=== PATIENT | male | born 1955 | race Caucasian/White ===

== ENCOUNTER 2019-01-09 09:04 | Inpatient (IN) | payer BC, SELFPAY ==
[2019-01-09 09:36] LABS: #Basophils 0.1 thou/uL (0.0-0.2); #Eosinphils 0.1 thou/uL (0.0-0.7); #Monocytes 0.7 thou/uL (0.11-0.59); #Neutrophils 11.5 thou/uL (1.40-6.50); %Basophils 0.7 % (0.0-1.0); %Eosinophils 0.5 % (0.0-10.0); %Lymphocytes 13.6 % (21.0-51.0); %Monocytes 4.6 % (0.0-10.0); %Neutrophils 80.6 % (42.0-75.0); Hemoglobin 8.2 g/dL (14.0-18.0); Mean Corpuscular HGB CONC 31.7 g/dL (32.0-36.0); Mean Corpuscular Hemoglobin 26.4 pg (27.0-31.0); Mean Corpuscular Volume 83.1 fL (78.0-98.0); Mean Platelet Volume 5.7 fL (7.4-10.4); Platelet Count 852 thou/uL (130-400); RBC Distribution Width 13.8 % (11.5-14.5); Red Blood Cell (RBC) Count 3.12 mill/uL (4.70-6.10); White Blood Cell (WBC) Count 14.3 thou/uL (4.8-10.8)
[2019-01-09 09:51] LABS: ALT (SGPT) 25 U/L (8-55); AST (SGOT) 29 U/L (5-34); Albumin 3.5 g/dL (3.4-4.8); Alkaline Phosphatase 172 U/L (40-150); Anion Gap 17 mmol/L (10-20); BUN (Urea Nitrogen) 15 mg/dL (8.4-25.7); Bilirubin, Total 0.3 mg/dL (0.2-1.2); Calc. Creatinine Clearance 0 mL/min (70-130); Calcium 9.2 mg/dL (7.8-10.44); Carbon Dioxide 24 mmol/L (23-31); Chloride 95 mmol/L (98-107); Estimated GFR-MDRD Greater than 90; Globulin 4.2 g/dL (2.4-3.5); Glucose 105 mg/dL (80-115); Potassium 4.7 mmol/L (3.5-5.1); Protein, Total 7.7 g/dL (5.8-8.1); Sodium 131 mmol/L (136-145)
[2019-01-09] MEDS ORDERED: Morphine 4 MG/ML VIAL ONE (10:57)
--- NOTE | 2019-01-09 11:12 | CT ---
CT Chest Abd Pelvis W Con History: Abdominal pain. Bloody stools. Cough. Comparison: Radiograph same day Findings: Large left perihilar mass with central necrosis and mediastinal invasion measuring 9.3 x 5. 8 x 10 cm. There is attenuation of the left main pulmonary artery with occlusion of the left upper lobe pulmonary arteries. Lingular pulmonary arteries. Attenuated. Small left effusion. There is lymphangitic thickening in the left upper lobe with nodularity. Same is true for the lingula . Endobronchial debris left lower lobe. Right lung relatively clear. Abnormal soft tissue mass along the parietal pericardium measuring 1.3 cm. Post obstructive pneumonit is within the lingula. There is tumor extension into the left subclavian vein. No suspicious osteolytic or osteoblastic lesions. Liver is unremarkable. Multiple masses of the spleen, largest measuring up to 8.1 cm. This does cause mass effect upon the left kidney and adrenal gland. Small volume perihepatic ascites and free fluid within the pelvis. Omental nodule is noted just anterior to the gallbladder fundus measuring 2. 7 cm. There are mesenteric nodules of the small bowel mesentery measuring up to 4.6 cm. Subcapsular mass of the right posterior kidney with peripheral enhancement measures 1.9 cm. Soft tissue mass in the left axilla with central necrosis measures 2 cm abutting the subscapularis mu scle. Small soft tissue mass sits along the fascia of the right gluteus jackie muscle axial image 123 measuring 1.3 cm. Impression: 1. Large centrally necrotic left hilar mass with mediastinal invasion and lymphangitic spread of tumo r in the lingula and left upper lobe. Bronchoscopy is warranted. 2. Extensive soft tissue metastasis below the diaphragm including the omentum, subcapsular right kidn ey, spleen, and mesentery. 3. Soft tissue masses along the right gluteus jackie fascia and left subscapularis muscle. 4. Extension of tumor into the left subclavian vein, partial tumor thrombus. 5. Parietal pericardial studding. 6. Attenuation of the left main pulmonary artery with obliteration left upper lobe pulmonary artery a nd extensive narrowing of the lingular pulmonary artery. 7. Malignant left pleural effusion.
[2019-01-09] MEDS ORDERED: Nicotine 21 MG PATCH ONE (11:18)
[2019-01-09] MEDS ORDERED: Ondansetron PF 4 MG/2 ML Vial ONE (11:24)
--- NOTE | 2019-01-09 11:39 | RAD ---
PA AND LATERAL VIEWS CHEST: HISTORY: Hemoptysis, travel, weight loss. Heavy smoker. FINDINGS: The heart size is normal. There is a large mass in the left upper lung. No pneumothoraces or pleura l effusions are seen. IMPRESSION: Findings suspicious for left-sided lung malignancy. Further evaluation with contrast-enhanced CT sca n is recommended. CODE T POS: TPC
[2019-01-09 13:12] LABS: Bilirubin Negative (Negative); Blood, Urine Negative (Negative); Clarity Clear (Clear); Glucose, Urine (Dipstick) Negative (Negative); Leukocyte Negative (Negative); Nitrite Negative (Negative); Protein, Urine (Dipstick) Negative (Neg-Trace); Urobilinogen 0.2 mg/dL (Less than 2)
[2019-01-09 13:14] LABS: RBC/HPF 0-3 HPF (0-3); Squamous Epithelial 0-3 HPF (0-3); WBC/HPF 0-3 HPF (0-3)
[2019-01-09 13:15] LABS: Bacteria/HPF None Seen HPF (None Seen)
[2019-01-09 13:19] LABS: Hemoglobin 6.5 g/dL (14.0-18.0)
[2019-01-09] MEDS ORDERED: Iopamidol 300 61% 100 ML VIAL FS ONE (16:26)
[2019-01-09] MEDS ORDERED: Sodium Chloride 0.9% 1,000 ML IV SCH (17:44)
[2019-01-09 19:16] VITALS: BMI 20.1
[2019-01-09] MEDS ORDERED: Morphine 2 MG/ML SYRINGE IVP PRN (21:13)
[2019-01-09] MEDS: Nicotine 21 MG PATCH TD SCH (21:35)
[2019-01-09] MEDS: HYDROcodone/Acetaminophen 5/325 mg Tablet PO PRN (21:38)
[2019-01-09] MEDS: Famotidine 20 MG TAB PO SCH (21:39)
--- NOTE | 2019-01-09 21:59 | HP ---
CHIEF COMPLAINT: Abdominal pain. HISTORY OF PRESENT ILLNESS: This is a 63-year-old male with no significant past medical history, who presents to the emergency room with a complaint of nausea, dry heaving, abdominal pain, and ongoing cough. The patient reports that he has been coughing up blood since May of 2017, which ranges from a bright red to a reddish brown in color, and states that it has been occurring essentially every day. He thought that this started with a sinus issue as he was traveling back and forth between the country [facility] for work; however, the symptoms persisted. Since his return on 11/27, his reports that he has been in "real bad shape " with the patient complaining of bloating, abdominal pain that he describes as shooting and intermittent throughout his abdomen, difficulty breathing, unintentional weight loss of 30 pounds, low-grade fevers and night sweats as well as generalized chest pain. He has not seen anyone for this. He does have a significant tobacco history. He denies any other prior history of these sx. He works 3 weeks on in [facility] and 1 week here and denies any exposures there. 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 In the emergency room, the patient underwent CT scanning which shows significant findings throughout the lung and abdomen and concerning for new onset metastatic malignancy. He received nicotine 21 mg patch, Zofran 4 mg x2, 2 L of IV fluids , and hospitalist called for admission. PAST MEDICAL HISTORY: None. PAST SURGICAL HISTORY: None. SOCIAL HISTORY: The patient smokes 3-4 packs of tobacco per day. Denies any alcohol use in the past month. He is a full code and his surrogate decision maker is his or daughter. 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 FAMILY HISTORY: Significant for cancer and coronary artery disease. CURRENT MEDICATIONS: 1. Okfi-byt-bccmdvs Tylenol. 2. Gas-X as needed. 3. Maalox as needed. 4. Advil Cold and Sinus as needed. 5. Pepto-Bismol as needed. REVIEW OF SYSTEMS: Positive for headaches, sore throat, hoarseness, decreased urine output over the past few weeks, low-grade fevers, night sweats; chest pain, he describes as soreness; unintentional weight loss of 30 pounds, bloating, abdominal pain, and dyspnea. He denies any vision changes. All remaining review of systems reviewed and negative. PHYSICAL EXAMINATION: VITAL SIGNS: Blood pressure is 156/75, temp 98.7, pulse 99, respirations 18, sats 97% on 2 L and 96% on room air. GENERAL: Awake, alert, oriented, responsive, in no apparent distress, cachectic appearing. Able to speak in regular sentences. HEENT: Pupils are equal and round. Oral mucosa is pink and moist. NECK: Supple, nontender. LYMPHATICS: No palpable cervical or supraclavicular lymphadenopathy. LUNGS: Clear to auscultation bilateral. No audible wheezing, rhonchi, or rales. HEART: Normal S1 and S2. Regular rate and rhythm. No significant murmur. ABDOMEN: Soft with present bowel sounds. Mild tenderness to palpation. No palpable abnormalities. EXTREMITIES: No clubbing, cyanosis, or edema. SKIN: No visible rashes. NEUROLOGICAL: No focal deficits. PSYCH: Appears euthymic. VASCULAR: 2+ dorsalis pedis pulses. MATTSON FINDINGS AND TEST RESULTS: CBC; 14.3, 8.2, 25.9, 852 with a hemoglobin 4 hours later of 6.5. Chemistry; 131, 4.7, 95, 24, 15, 0.79, 105. LFTs; T bilirubin 0.3, AST 29, ALT 25, alkaline phosphatase 172, total protein 7.7 and albumin 3.5. Urinalysis normal. Malaria smear is negative. Chest x-ray is personally reviewed. Findings suspicious for left-sided lung malignancy with a large mass in the left upper lung with recommendation for CT scan. CT scan of the chest, abdomen, pelvis is personally reviewed. This shows large centrally necrotic left hilar mass with mediastinal invasion, lymphangitic spread of tumor into the lingula and left upper lobe; extensive soft tissue metastases below the diaphragm; soft tissue masses along the right gluteus jackie fascia and left subscapularis muscle; extension of tumor into the left subclavian vein and partial tumor thrombus; parietal pericardial study; attenuation of the left pulmonary artery with obliteration of the left upper lobe pulmonary artery and extensive narrowing of the lingular pulmonary artery; malignant left pleural effusion. IMPRESSION: 1. New onset metastatic disease in the lung with necrosis, with mediastinal invasion, lymphangitic spread, left subclavian vein invasion and partial tumor thrombus. 2. Nausea, vomiting, abdominal pain secondary to metastases. 3. Leukocytosis secondary to above. 4. Anemia secondary to above. 5. Hyponatremia, likely also secondary to above. PLAN: 1. Admission to the hospital. 2. Consultation with Pulmonology and GI to characterize the malignancy and determine the best location for biopsy. I will also place a consult for Oncology as well. 3. Transfusion now starting with 1 unit as the patient is not actively having hemoptysis. Recheck CBC in the morning. Reviewed the risks and benefits with the patient, his , and his daughter, who all demonstrate understanding and agree to proceed. Written consent is obtained. 4. With the travel history, will obtain sputum culture. 5. Monitor his hyponatremia. 6. Nicotine replacement. 7. DVT prophylaxis. Given the hemoptysis, we will use pneumatic compression devices. 8. GI prophylaxis. We will start an H2 bria given the nausea, vomiting, abdominal pain to see if this provide some relief. 9. We will have pain medicines and antiemetics available as needed. 10. Diet, as tolerated. 11. Code status is full and surrogate decision maker is the patient's or daughter. 12. Reviewed the plan of care, the current findings and concerns with the patient and his family who demonstrated understanding. No questions or further needs at the end of evaluation. 13. The patient is at high risk given age comorbidities and current presentation. Job ID: [id number] MTDD
[2019-01-10 06:29] LABS: #Eosinphils 0.1 thou/uL (0.0-0.7); #Lymphocytes 1.8 thou/uL (1.20-3.40); #Monocytes 0.9 thou/uL (0.11-0.59); #Neutrophils 12.4 thou/uL (1.40-6.50); %Basophils 0.3 % (0.0-1.0); %Eosinophils 0.7 % (0.0-10.0); %Lymphocytes 11.9 % (21.0-51.0); %Monocytes 5.8 % (0.0-10.0); %Neutrophils 81.3 % (42.0-75.0); Mean Corpuscular HGB CONC 33.4 g/dL (32.0-36.0); Mean Corpuscular Hemoglobin 28.5 pg (27.0-31.0); Mean Corpuscular Volume 85.6 fL (78.0-98.0); Mean Platelet Volume 6.2 fL (7.4-10.4); Platelet Count 699 thou/uL (130-400); Red Blood Cell (RBC) Count 2.81 mill/uL (4.70-6.10); White Blood Cell (WBC) Count 15.3 thou/uL (4.8-10.8)
[2019-01-10] MEDS: HYDROcodone/Acetaminophen 5/325 mg Tablet PO PRN ×3 (06:30→18:46)
[2019-01-10 06:48] LABS: Anion Gap 13 mmol/L (10-20); BUN (Urea Nitrogen) 9 mg/dL (8.4-25.7); Calc. Creatinine Clearance 86 mL/min (70-130); Calcium 8.3 mg/dL (7.8-10.44); Carbon Dioxide 22 mmol/L (23-31); Chloride 97 mmol/L (98-107); Estimated GFR-MDRD Greater than 90; Glucose 93 mg/dL (80-115); Potassium 4.2 mmol/L (3.5-5.1); Sodium 128 mmol/L (136-145)
[2019-01-10] MEDS: Famotidine 20 MG TAB PO SCH ×2 (09:19→19:59)
--- NOTE | 2019-01-10 09:24 | PRG ---
DATE OF SERVICE: 01/10/2019 SUBJECTIVE: The patient is seen and examined at bedside. He feels somewhat better. He still has diarrhea, which is going on for several days according to him. OBJECTIVE: VITAL SIGNS: Blood pressure is 145/85, pulse is 84, respirations 18, and O2 saturation is 93%. His temperature is 98.7, maximal temperature is 99.2. HEENT: His head is atraumatic and normocephalic. He looks tired and somewhat malnourished. Eyes are PERRLA. Sclerae are nonicteric. Oral mucosa is moist. NECK: Supple. LUNGS: Breath sounds diminished at the left lung, mainly in the upper parts. No wheezing. No rales. HEART: S1 and S2 normal. No S3. No S4. ABDOMEN: Nondistended. It is tender to palpation in the upper parts in the epigastric area. There is some guarding. No ascites. EXTREMITIES: No clubbing, cyanosis, or edema. NEUROLOGICAL: He follows my commands. He moves his all 4 extremities. There is no any sensory or motor deficits present. LABORATORY DATA: Labs showed a white count of 15.3, hemoglobin 8.0, hematocrit 24.0, and platelet count is 699,000. Sodium of 128, potassium 4.2, chloride 97, CO2 of 22, BUN 9, and creatinine 0.72. Urinalysis within normal limits. Malaria smear within normal limits. IMPRESSION: 1. Metastatic disease in the lung with necrosis with mediastinal invasion, lymphangitic spread, left subclavian vein invasion and partial tumor thrombus. 2. Nausea, vomiting, abdominal pain, and diarrhea, presumed secondary to #1. 3. Anemia, status post PRBC x2 units transfusion. 4. Hyponatremia, most likely syndrome of inappropriate antidiuretic hormone secretion related to neoplasm. PLAN: Plan is to continue his current regimen of pain management, morphine and hydrocodone as needed. Continue on Nicoderm patch. We are waiting for consultants of oncologist, herb digger, and hotel engineer. His guaiac stool came back positive. His blood cultures and urine culture negative so far. We will continue DVT prophylaxis with SCDs. No heparin since he is positive for guaiac. We will follow up on his H and H and sodium level. His kidney function is good. We will have to have some tissue diagnosis noted to start him on any treatment. Job ID: [id number]
[2019-01-10] MEDS ORDERED: Lidocaine 4% PF 5 ML AMP NEB SCH (12:45)
--- NOTE | 2019-01-10 14:35 | CON ---
DATE OF CONSULTATION: 01/10/2019 REASON FOR CONSULTATION: Lung mass. HISTORY OF PRESENT ILLNESS: Mr. Ga is a 63-year-old male, who presents to the hospital with abdominal pain and hemoptysis. He says he has been coughing up blood since March of 2018. He has lost about 25 pounds of weight. He has never sought any medical care for this until yesterday. He underwent CT scanning, which showed an extensive left upper lobe lung mass invading the mediastinum in the pericardium. He also had spread to the abdomen and the pelvis. He is a 3 to 4 pack a day smoker since about age 18. He has worked three weeks on one week off from [facility] in the last several months. PAST MEDICAL HISTORY: Otherwise unremarkable. PAST SURGICAL HISTORY: Unremarkable. MEDICATIONS: Prior to admission, [id number] medications. REVIEW OF SYSTEMS: Has had an occasional night sweats. He has had some low-grade fevers. He has hemoptysis and 25 pounds weight loss. PHYSICAL EXAMINATION: VITAL SIGNS: Temperature 98.9, pulse 86, respirations 20, saturation 94%, blood pressure 116/72. GENERAL: He is a thin male, who is in no acute distress. HEENT: Pupils are react. Sclerae icteric. Oropharynx clear. NECK: He has severe supraclavicular node on the left. LUNGS: Diminished breath sounds left upper lobe. Clear air entry on the right. CARDIOVASCULAR: S1 and S2. Slightly tachycardic. ABDOMEN: Soft. There is a midline large mass palpable. EXTREMITIES: No clubbing, cyanosis, or edema. LABORATORY DATA: White blood cell count 15.3, hemoglobin 8, hematocrit 24, and platelet count 699. Sodium 128, potassium 4.2, chloride 97, CO2 of 22, BUN 9, creatinine 0.7, and glucose 93. CT shows the left upper lobe lung mass as described above. ASSESSMENT: The patient has a large left upper lobe mass with probable endobronchial involvement, which would suggest primary lung cancer. Additionally, he has abdominal involvement, pelvic involvement, and pericardial involvement. RECOMMENDATION: Bronchoscopy for diagnostic purposes. Discussed risks with the patient including bleeding, infection next to lung puncture, and reaction to anesthesia, he is agreeable to proceed. We will go ahead and start some hydration tonight as I do not want him to be volume depleted prior to this procedure. Further disposition to follow. Job ID: [id number]
[2019-01-10] MEDS: Sodium Chloride 0.9% 1,000 ML IV SCH ×2 (15:28→15:29)
--- NOTE | 2019-01-10 19:26 | CON ---
DATE OF CONSULTATION: REASON FOR CONSULT: Lung mass. HISTORY OF PRESENT ILLNESS: Mr. Ga is a pleasant 63-year-old gentleman who presented to the emergency room with complaints of cough and abdominal pain. He has had hemoptysis since last year. He has a history of smoking 3 to 4 packs of cigarettes daily. He works in [email or web address] 3 out of 4 weeks per month and does frequent traveling. He felt that his symptoms were related to upper respiratory infection. He does admit to a 25-pound weight loss. In the emergency room, he underwent a CT of the chest, abdomen, and pelvis. There was a 9.3 x 5.8 x 10 cm mass in the left perihilar region with central necrosis and had mediastinal invasion. There was lymphangitis spread in the lingula. There was soft tissue metastasis in the omentum, right kidney, spleen, and mesentery. There was a 2-cm soft tissue mass in the axilla and another soft tissue mass in the right gluteus jackie. There was also a left pleural effusion. The patient was admitted for further workup. He denies any complaints of pain. He has fatigue, occasional night sweats. PAST MEDICAL HISTORY: None. PAST SURGICAL HISTORY: None. ALLERGIES: NO KNOWN DRUG ALLERGIES. HOME MEDICATIONS: None. FAMILY HISTORY: Cancer. SOCIAL HISTORY: . Lives with his . No alcohol or illicit drug use. Smokes 3 to 4 packs of cigarettes daily. REVIEW OF SYSTEMS: A 10-point review of systems is negative except for noted in HPI. PHYSICAL EXAMINATION: VITAL SIGNS: Temperature is 98.9, pulse is 86, respiratory rate 20, blood pressure is 168/72, and he is 94% on room air. GENERAL: This is a well-developed, well-nourished male, in no acute distress. HEENT: Normocephalic, atraumatic. Pupils are equal and reactive to light. NECK: Supple. CV: Regular rate and rhythm. LUNGS: Clear. ABDOMEN: Soft and nontender. Bowel sounds are positive. Mild tenderness in the right upper quadrant. EXTREMITIES: No clubbing, cyanosis, or edema. SKIN: No rash. HEMATOLOGICAL: No petechiae or purpura. LYMPH NODE: No palpable cervical or axilla lymphadenopathy. NEUROLOGICAL: Nonfocal. PSYCH: Alert, oriented, and appropriate. PERTINENT LABS AND X-RAYS: Current WBCs are 15.3, hemoglobin 8.0, hematocrit 24.0, platelets are 699,000, he has 81% neutrophils, 12% lymphocytes. Sodium 128, potassium 4.2, chloride 97, CO2 is 22, BUN is 9, creatinine 0.72, lactic acid 1.0, calcium 8.3, bilirubin 0.3, AST is 29, ALT is 25, alkaline phosphatase is 172. Serum total protein is 7.7, albumin 3.5, globulin 4.2. Urine is negative. Malaria is negative. All blood cultures have been negative. His stool is positive for fecal occult blood. ASSESSMENT: 1. Metastatic disease, likely lung primary with a large left upper lobe mass, abdominal and pelvic metastasis. 2. Anemia, likely secondary to malignancy. DISCUSSION: The patient needs a tissue for diagnosis. Dr. Wilder is planning a bronchoscopy tomorrow. Treatment options and further recommendations will be based on pathology. Recommend financial counselors to come and see the patient as he lost his insurance recently. He will likely have a bone scan and a brain MRI after bronchoscopy to complete staging. Thank you for the consult. We will follow along with his hospital course. Job ID: [id number]
--- NOTE | 2019-01-10 19:45 | CON ---
DATE OF CONSULTATION: 01/10/2019 REASON FOR CONSULTATION: Nausea, dry heaving, and weight loss. HISTORY OF PRESENT ILLNESS: Mr. Ga is a 63-year-old male who was admitted from the emergency room yesterday with increasing nausea, associated with dry heaving and abdominal pain in the last 3 to 4 weeks. His symptoms began in May of this year when he started having hemoptysis. This has been increasing. He has been working in [facility] for the last 6 months. The patient has not sought any medical care for these symptoms. In the interval, he has lost approximately 25 pounds. He reports having hot flashes, but without any sweats. He denies having any actual vomiting, despite having severe nausea. The abdominal pain is described as bandlike in distribution, mostly in the upper abdomen. He has not noted any hematochezia. On admission, he was profoundly anemic. He has received 2 units of packed red blood cells transfusion overnight and since then, he has felt better. Currently, the nausea is less. He has not had any significant abdominal pain since admission. CT of chest, abdomen, and pelvis performed yesterday showed large lung mass with a mediastinal invasion in addition to soft tissue metastatic involvement below the diaphragm involving the mesentery, omentum, and spleen along with invasion to the right gluteus muscle. He also has a large left pleural effusion. PAST MEDICAL HISTORY: Essentially, no previous medical illness or surgery. MEDICATIONS: At home, none. SOCIAL HISTORY: The patient is a chronic smoker, averaging 2 to 3 packs a day. He did have occasional alcohol consumption in the past, but nothing on daily basis. He is , lives with his and daughter in [place]. FAMILY HISTORY: Negative for any known GI problem, liver disease, or GI malignancy. REVIEW OF SYSTEMS: Other than afore mentioned in the HPI, 10-point review of systems did not show any other pertinent positives or negatives. PHYSICAL EXAMINATION: VITAL SIGNS: Temperature is 98.9, blood pressure 168/72, and pulse of 86. GENERAL: He is alert, conversant, in no distress. HEENT: Shows anicteric sclerae. There is some temporal wasting. Oropharynx is moist. NECK: Supple. No adenopathy. CV: Shows normal S1, S2. Regular rate and rhythm. CHEST: Shows breath sounds reduced on the left side. ABDOMEN: Soft. No distention. No tympany. No illicit tenderness. No palpable mass or organomegaly. EXTREMITIES: Shows no edema. LABORATORY DATA: WBCs 15.3, hemoglobin 8.0 after 2 units of RBC transfusion, and platelet count of 699. Sodium 128, potassium 4.2, chloride 97, and creatinine 0.72. Liver profile is normal. Alkaline phosphatase 172. IMPRESSION: 1. Given CT finding of large lung mass with mediastinal involvement, I suspect he has lung cancer with metastatic disease and likely peritoneal carcinomatosis involving his abdomen. 2. Anemia, multifactorial. 3. Weight loss. 4. Nausea with dry heaves and abdominal pain. Better since admission. CT did not show any evidence of mechanical obstruction. Symptoms slightly from metastatic involvement in his abdominal cavity. RECOMMENDATIONS: 1. No plan for any GI intervention at this point. 2. Proceed with bronchoscopy for tissue diagnosis. 3. Continue with symptomatic pain control, nausea control with morphine and ondansetron as needed. Job ID: [id number]
[2019-01-10] MEDS: Nicotine 21 MG PATCH TD SCH (19:59)
[2019-01-10] MEDS: Acetaminophen 325 MG TAB PO PRN (20:03)
[2019-01-10] MEDS: Ondansetron PF 4 MG/2 ML Vial IVP PRN (21:54)
[2019-01-11] MEDS: Sodium Chloride 0.9% 1,000 ML IV SCH ×4 (00:41→23:56)
[2019-01-11] MEDS ORDERED: Fentanyl 100 MCG/2 ML VIAL ONE (07:47)
[2019-01-11] MEDS ORDERED: Lidocaine 2% Jelly 5 ML TUBE ONE (07:52)
[2019-01-11] MEDS ORDERED: Lidocaine 1% (PF) 30 ML VIAL ONE (07:52)
[2019-01-11] MEDS ORDERED: Glycopyrrolate 0.2 MG/ML 5 ML SYRINGE ONE (08:40)
[2019-01-11] MEDS ORDERED: Rocuronium Bromide 10 MG/ML (10ML VIAL) ONE (08:40)
[2019-01-11] MEDS ORDERED: Ondansetron PF 4 MG/2 ML Vial ONE (08:40)
[2019-01-11] MEDS ORDERED: PROPOFOL 200 MG/20 ML VIAL ONE (08:40)
[2019-01-11] MEDS ORDERED: Succinylcholine Chloride 20 MG/ML 10 ml SYRINGE FS ONE (08:40)
[2019-01-11] MEDS ORDERED: Lidocaine 1% PF 5 ML VIAL ONE (08:40)
[2019-01-11] MEDS ORDERED: Promethazine HCl 25 MG/ML VIAL IM PRN (09:12)
[2019-01-11] MEDS ORDERED: Promethazine HCl 25 MG/ML VIAL SLOW IVP PRN (09:12)
[2019-01-11] MEDS ORDERED: Ondansetron HCl/PF 4 MG/2 ML Vial IVP PRN (09:12)
--- NOTE | 2019-01-11 09:28 | OP ---
DATE OF PROCEDURE: 01/11/2019 PROCEDURE PERFORMED: Fiberoptic bronchoscopy. PREOPERATIVE DIAGNOSIS: Left lung mass. POSTOPERATIVE DIAGNOSIS: Left mainstem endobronchial lung mass. ANESTHESIA: General endotracheal. DESCRIPTION OF PROCEDURE: The procedure was done in the operating room under cardiopulmonary monitoring. The patient signed the informed consent prior to the operation and understood the risks involved including bleeding, infection, and external lung puncture. The patient was intubated by Dr. Davis with 8.0 endotracheal tube placed on general anesthesia. An Olympus bronchoscope was placed down the patient's endotracheal tube. The trachea, right mainstem bronchus, right upper lobe, right middle lobe, and right lower lobe were all normal in appearance. The left mainstem bronchus had a distal endobronchial tumor that appeared necrotic and was 100% obstructing where I could not see the left upper lobe or the left lower lobe. A series of endobronchial biopsies, endobronchial brushings, and washings were performed. There was minimal bleeding. He tolerated the procedure well and was sent to the recovery room in stable condition. Job ID: [id number]
[2019-01-11] MEDS: Famotidine 20 MG TAB PO SCH ×2 (11:24→20:40)
--- NOTE | 2019-01-11 12:01 | PRG ---
DATE OF SERVICE: 01/11/2019 SUBJECTIVE: The patient just returned from bronchoscopy this morning. Overall, he feels much better. Nausea and dry heavings are much less. No significant abdominal pain this morning. PHYSICAL EXAMINATION: VITAL SIGNS: Temperature is 98.5, blood pressure 125/67, pulse of 85. GENERAL: He is alert, sitting up, very comfortable. HEENT: Shows anicteric sclerae. Oropharynx is moist. NECK: Supple. CV: Shows normal S1, S2. Regular rate and rhythm. CHEST: Shows a breath sound. ABDOMEN: Soft. Some fullness in the upper abdominal area. No tenderness to palpation. He has active bowel sounds. EXTREMITIES: Shows no edema. LABORATORY DATA: None today. ASSESSMENT: 1. Metastatic lung cancer. 2. Anemia, multifactorial. He does have heme-positive stool, but no overt bleeding. 3. Weight loss. RECOMMENDATION: Overall, stable from GI standpoint. No planned GI intervention or tests at this point. Job ID: [id number]
--- NOTE | 2019-01-11 12:57 | PRG ---
DATE OF SERVICE: 01/11/2019 SUBJECTIVE: The patient is seen and examined at bedside. He just came back from his bronchoscopy procedure, which was done by Dr. Wilder is also pending. He feels drowsy. OBJECTIVE: VITAL SIGNS: Blood pressure is 125/67, pulse is 85, respiratory rate is 20, temperature is 98.5, and O2 saturation is 95%. HEENT: His head is atraumatic and normocephalic. Eyes are PERRLA. Sclerae are nonicteric. Conjunctivae somewhat palish. Oral mucosa is moist. NECK: Supple. LUNGS: Few crackles at the mid portion of the left lung. Few wheezes. HEART: S1 and S2 normal. No S3. No S4. ABDOMEN: Soft, nontender, and nondistended. EXTREMITIES: No clubbing, cyanosis, or edema. NEUROLOGIC: He follows my commands. He moves his all 4 extremities. There are no any motor deficits. LABORATORY DATA: Labs showed 2 blood cultures negative x48 hours. Stool occult blood test came back positive. Urine culture is negative and respiratory culture preliminary is showing 5 to 10 epithelial cells in low-power field, moderate wbc's, moderate gram-positive cocci in pairs and chains, few gram-positive cocci in clusters, and final results read as few normal respiratory bolivar present. IMPRESSION: 1. Metastatic disease in the lung with necrosis with mediastinal invasion, lymphangitic spread, left subclavian vein invasion and partial tumor thrombus, status post bronchoscopy and biopsies this morning. 2. Nausea, vomiting, abdominal pain, and diarrhea improved that is most likely secondary to carcinomatosis in his abdomen. 3. Anemia, status post PRBCs transfusion. 4. 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 The patient was seen by postal carrier and oncologist. We are awaiting for the biopsy results at this point. For now, we will continue p.r.n. morphine and we will start him on Lovenox for DVT prophylaxis. Job ID: [id number]
[2019-01-11 12:59] LABS: Mean Corpuscular Hemoglobin 28.1 pg (27.0-31.0); Mean Corpuscular Volume 85.2 fL (78.0-98.0); Mean Platelet Volume 6.1 fL (7.4-10.4); Platelet Count 807 thou/uL (130-400); RBC Distribution Width 14.1 % (11.5-14.5); Red Blood Cell (RBC) Count 2.85 mill/uL (4.70-6.10); White Blood Cell (WBC) Count 21.6 thou/uL (4.8-10.8)
[2019-01-11 13:21] LABS: Anion Gap 12 mmol/L (10-20); BUN (Urea Nitrogen) 7 mg/dL (8.4-25.7); Calc. Creatinine Clearance 87 mL/min (70-130); Calcium 8.3 mg/dL (7.8-10.44); Carbon Dioxide 25 mmol/L (23-31); Chloride 95 mmol/L (98-107); Estimated GFR-MDRD Greater than 90; Glucose 108 mg/dL (80-115); Potassium 4.2 mmol/L (3.5-5.1); Sodium 128 mmol/L (136-145)
[2019-01-11 13:41] LABS: Band 3 % (5-11); Eosinophils 1 % (0-10); Lymphocytes 8 % (21-51); MDiff Complete? YES; Monocytes 2 % (0-10); Neutrophil 85 % (42-75); Platelet Morphology Comment Appears Increased; Polychromasia MODERATE = 3-4 cells (100X) (0-2/hpf)
[2019-01-11] MEDS: Acetaminophen 325 MG TAB PO PRN (13:44)
[2019-01-11] MEDS: HYDROcodone/Acetaminophen 5/325 mg Tablet PO PRN ×2 (18:39→23:58)
[2019-01-11] MEDS: Nicotine 21 MG PATCH TD SCH (20:40)
[2019-01-12] MEDS: Sodium Chloride 0.9% 1,000 ML IV SCH ×3 (04:31→14:42)
[2019-01-12] MEDS: Ondansetron PF 4 MG/2 ML Vial IVP PRN (06:05)
[2019-01-12] MEDS: Enoxaparin Sodium 40 MG/0.4 ML SYRINGE SC SCH (08:40)
[2019-01-12] MEDS: Famotidine 20 MG TAB PO SCH ×2 (08:40→20:38)
[2019-01-12 09:46] LABS: #Eosinphils 0.1 thou/uL (0.0-0.7); #Lymphocytes 1.3 thou/uL (1.20-3.40); #Monocytes 0.8 thou/uL (0.11-0.59); #Neutrophils 12.1 thou/uL (1.40-6.50); %Basophils 0.3 % (0.0-1.0); %Eosinophils 0.6 % (0.0-10.0); %Monocytes 5.3 % (0.0-10.0); %Neutrophils 84.7 % (42.0-75.0); Hemoglobin 7.1 g/dL (14.0-18.0); Mean Corpuscular HGB CONC 31.8 g/dL (32.0-36.0); Mean Corpuscular Volume 84.7 fL (78.0-98.0); Mean Platelet Volume 6.2 fL (7.4-10.4); Platelet Count 695 thou/uL (130-400); RBC Distribution Width 14.1 % (11.5-14.5); Red Blood Cell (RBC) Count 2.64 mill/uL (4.70-6.10); White Blood Cell (WBC) Count 14.3 thou/uL (4.8-10.8)
[2019-01-12 09:51] LABS: Anion Gap 10 mmol/L (10-20); BUN (Urea Nitrogen) 6 mg/dL (8.4-25.7); Calc. Creatinine Clearance 99 mL/min (70-130); Calcium 7.8 mg/dL (7.8-10.44); Carbon Dioxide 24 mmol/L (23-31); Chloride 96 mmol/L (98-107); Estimated GFR-MDRD Greater than 90; Glucose 93 mg/dL (80-115); Sodium 126 mmol/L (136-145)
--- NOTE | 2019-01-12 11:25 | PDOC.MOPN ---
Interval History: occasional nausea. Pain ok. Frequent cough with brown sputum. - Vital Signs Vital Signs: Vital Signs (12 hours) Temp Pulse Resp BP BP Pulse Ox 01/12/19 09:00 95 01/12/19 07:26 98.0 F 77 20 138/67 95 01/12/19 01:00 97.7 F 83 16 127/62 92 L Weight Admit Weight 124 lb 11.2 oz Weight 124 lb 11.2 oz - Physical Exam General: Alert, Oriented x3, No acute distress HEENT: Atraumatic, PERRLA, EOMI, Mucous membr. moist/pink Lungs: Other (diminished) Cardiovascular: Regular rate, Normal S1, Normal S2, No murmurs, Gallops, Rubs Abdomen: Normal bowel sounds, Soft, No tenderness, No hepatospenomegaly, No masses Extremities: No clubbing, No cyanosis, No edema, Normal pulses, No tenderness/ swelling Skin: No rashes, No breakdown, No significant lesion Neurological: Normal gait, Normal speech, Strength at 5/5 X4 ext, Normal tone, Sensation intact, Cranial nerves 3-12 NL, Reflexes 2+ Psych/Mental Status: Mental status NL, Mood NL - Labs Result Diagrams: 01/12/19 09:19 01/12/19 09:19 Lab results: Laboratory Results - last 24 hr 01/12/19 09:19: WBC 14.3 H, RBC 2.64 L, Hgb 7.1 L, Hct 22.4 L, MCV 84.7, MCH 27.0, MCHC 31.8 L, RDW 14.1, Plt Count 695 H, MPV 6.2 L, Neutrophils % 84.7 H, Lymphocytes % 9.0 L, Monocytes % 5.3, Eosinophils % 0.6, Basophils % 0.3, Neutrophils # 12.1 H, Lymphocytes # 1.3, Monocytes # 0.8 H, Eosinophils # 0.1, Basophils # 0.0 01/12/19 09:19: Sodium 126 L, Potassium 4.0, Chloride 96 L, Carbon Dioxide 24, Anion Gap 10, BUN 6 L, Creatinine 0.63 L, Estimated GFR (MDRD) Greater than 90 , Glucose 93, Calcium 7.8 01/11/19 12:42: WBC 21.6 H, RBC 2.85 L, Hgb 8.0 L, Hct 24.3 L, MCV 85.2, MCH 28.1, MCHC 33.0, RDW 14.1, Plt Count 807 H, MPV 6.1 L, Neutrophils % (Manual) 85 H, Band Neuts % (Manual) 3 L, Lymphocytes % (Manual) 8 L, Monocytes % (Manual ) 2, Eosinophils % (Manual) 1, Basophils % (Manual) 1, Neutrophils # Not Reportable, Lymphocytes # Not Reportable, Plt Morphology Comment Appears Increased H, Polychromasia MODERATE = 3-4 cells H 01/11/19 12:42: Sodium 128 L, Potassium 4.2, Chloride 95 L, Carbon Dioxide 25, Anion Gap 12, BUN 7 L, Creatinine 0.71, Estimated GFR (MDRD) Greater than 90, Glucose 108, Calcium 8.3 Status: lab reviewed by me - Pathology Pathology: pending A/P - Problem (1) Lung mass Current Visit: Yes Code(s): R91.8 - OTHER NONSPECIFIC ABNORMAL FINDING OF LUNG FIELD Status: Acute - Plan Plan: Bone scan to complete staging Biopsy completed, pathology pending.
--- NOTE | 2019-01-12 13:43 | PRG ---
DATE OF SERVICE: 01/12/2019 SUBJECTIVE: The patient is seen and examined at the bedside. He is feeling somewhat better. He got some rest overnight. He said that post bronchoscopy, was quite rough, but he is doing better now. He has very poor appetite. OBJECTIVE: VITAL SIGNS: Blood pressure is 156/67, pulse is 92, respirations 20, O2 saturation 94% on room air, temperature is 98.6. HEENT: His head is atraumatic and normocephalic. Eyes are PERRLA. Sclerae are nonicteric. Oral mucosa is moist. LUNGS: Breath sounds diminished at the upper part of the left lung. HEART: S1 and S2 normal. No S3. No S4. ABDOMEN: Soft, nontender, nondistended. EXTREMITIES: No clubbing, cyanosis, or edema. NEUROLOGIC: He is alert and oriented x4. There are no any motor deficits. He definitely shows some malnutrition. LABORATORY DATA: White count of 14.3, hemoglobin 7.1, hematocrit 22.4, platelet count is 695. Sodium of 126, potassium 4.0, chloride 96, BUN 6, creatinine 0.63. MICROBIOLOGY: Sputum respiratory culture showed 5-10 epithelial cells in low power field, moderate WBCs, moderate gram-positive cocci in pairs and chains and few gram-positive cocci in clusters. Blood cultures negative in 48 hours. Fecal occult blood test positive and urine no growth. IMPRESSION: 1. Lung mass, status post bronchoscopy and biopsy. 2. Anorexia, most likely related to a carcinomatosis process in the abdomen. 3. Anemia, status post transfusion of PRBCs x1. 4. Hyponatremia, most likely SIADH. PLAN: We will restrict his oral fluid intake to 800 mL per 24 hours, and we are waiting for the biopsy. Oncologist ordered bone scan for a full diagnostic workup, and for now, we will use p.r.n. morphine for pain control as needed. Job ID: [id number]
[2019-01-12] MEDS: HYDROcodone/Acetaminophen 5/325 mg Tablet PO PRN ×2 (14:41→20:35)
[2019-01-12] MEDS ORDERED: ISOVUE-370 76%-LOCM 1 ML ONE (16:02)
--- NOTE | 2019-01-12 17:16 | PRG ---
DATE OF SERVICE: 01/12/2019 SUBJECTIVE: Mr. Ga overall feels better. He still has nausea, but able to keep down all his foods. He tolerated breakfast tacos this morning and a half of the regular lunch. There is no vomiting. The only complaint is heat waves and hot flashes after waking up in the morning. PHYSICAL EXAMINATION: VITAL SIGNS: Temperature of 98.6, blood pressure of 156/67, pulse of 92. GENERAL: He is alert, no distress. HEENT: Shows anicteric sclerae. CV: Shows normal S1 and S2. Regular rate and rhythm. CHEST: Shows a breath sound. There is upper abdominal fullness greater on the right than the left. Mild tenderness, but no guarding or rebound. He has active bowel sounds. EXTREMITIES: Shows no edema. LABORATORY DATA: WBCs 14.3, hemoglobin 7.1, platelet count of 695. Sodium 126, potassium 4.0, chloride 96, CO2 of 24, and creatinine 0.63. ASSESSMENT: 1. Large left lung mass, likely metastatic lung cancer. Biopsy pending. 2. Anorexia, weight loss. 3. Nausea, improved. 4. Anemia, multifactorial. No overt gastrointestinal blood loss. RECOMMENDATIONS: No new GI recommendation, GI function appears stable. No planned GI intervention or other tests at this point. Please call GI Service if needed. Job ID: [id number]
--- NOTE | 2019-01-12 17:21 | PRG ---
DATE OF SERVICE: 01/12/2019 SUBJECTIVE: Mr. Ga has no complaints. We are awaiting his pathology reports. OBJECTIVE: VITAL SIGNS: He is afebrile. Heart rate is 96, respiratory rate is 20, oximetry is 93% on room air, blood pressure 131/73. LUNGS: Distant, clear. HEART: Regular rhythm. ABDOMEN: Soft. IMPRESSION: 1. Lung mass, awaiting pathology from bronchoscopy. 2. Hemoptysis since May of 2018. [place] and said it was very hard for him to schedule an appointment for some type of evaluation. 3. Heavy tobacco history. 4. Anemia that is likely multifactorial. 5. Weight loss, likely mostly related to his malignancy. He is tentatively on schedule for a bone scan. We will continue to follow. I answered all of his questions. Job ID: [id number]
--- NOTE | 2019-01-12 21:55 | CT ---
CTA Angio Chest W WO Con HISTORY: Tachycardia, chest pain, hypoxemia COMPARISON: 01/09/2019 study FINDINGS: There is been a definite change in the appearance of the left chest. Loculated left pleural effusion is definitely increased as compared to the prior examination. The large necrotic left hilar mass is demonstrated largest which are difficult to define due to associated postobstructive ch leobardo involving the left upper lobe. There is complete obliteration of the left upper lobe bronchus. The left upper lobe pulmonary artery is also occluded at its origin. Minimal residual aerated lung se en within the left upper lobe. There is also worsening collapse in the left lower lobe. There is a segment of the left lower lobe raucous which is completely obliterated. A small right pleural effusion is now present. Subsegmental atelectatic change in the right lung base is seen. There is good pulmonary artery opacification and no CT evidence for pulmonary embolus. A large splenic mass is again identified. The other findings described on the previous report appear stable. IMPRESSION: 1. Significant change in the appearance of the left chest with increasing left-sided effusion now wit h essentially complete collapse of the left upper lobe and also consolidation changes of the left lower lobe with a large necrotic left hilar lung mass again seen. 2. No CT evidence of pulmonary embolus.
[2019-01-12] MEDS: Nicotine 21 MG PATCH TD SCH (22:28)
--- NOTE | 2019-01-12 22:52 | PDOC.EVN ---
Event Note - Event Note Event Note: Nursing called to say patient woke up with acute CP and SOB; Hypoxic to 91%, and tachycardic. I evaluated patient. No acute distress, but complaining of pain and SOB. No EKG changes. Discussed the case with Dr. Suárez, and CTA ordered to rule out PE given risk factors. No PE, but there was interval change in left lobe and mass post bronch and biopsy. Patient feels much improved after norco; no pain, no SOB, and HR is 84.
[2019-01-13] MEDS: Sodium Chloride 0.9% 1,000 ML IV SCH ×3 (02:06→21:03)
[2019-01-13] MEDS: HYDROcodone/Acetaminophen 5/325 mg Tablet PO PRN ×3 (03:15→17:34)
[2019-01-13 05:52] LABS: #Eosinphils 0.2 thou/uL (0.0-0.7); #Lymphocytes 1.6 thou/uL (1.20-3.40); #Monocytes 0.9 thou/uL (0.11-0.59); #Neutrophils 9.1 thou/uL (1.40-6.50); %Basophils 0.1 % (0.0-1.0); %Eosinophils 1.4 % (0.0-10.0); %Lymphocytes 13.6 % (21.0-51.0); %Monocytes 7.8 % (0.0-10.0); Hemoglobin 6.5 g/dL (14.0-18.0); Mean Corpuscular HGB CONC 32.7 g/dL (32.0-36.0); Mean Corpuscular Hemoglobin 27.6 pg (27.0-31.0); Mean Corpuscular Volume 84.5 fL (78.0-98.0); Mean Platelet Volume 6.3 fL (7.4-10.4); Platelet Count 629 thou/uL (130-400); RBC Distribution Width 14.1 % (11.5-14.5); Red Blood Cell (RBC) Count 2.36 mill/uL (4.70-6.10); White Blood Cell (WBC) Count 11.8 thou/uL (4.8-10.8)
[2019-01-13] MEDS: Famotidine 20 MG TAB PO SCH ×2 (08:43→21:04)
[2019-01-13] MEDS: Enoxaparin Sodium 40 MG/0.4 ML SYRINGE SC SCH (08:44)
[2019-01-13] MEDS: Morphine 2 MG/ML SYRINGE IVP PRN ×2 (08:48→14:02)
--- NOTE | 2019-01-13 09:02 | PRG ---
DATE OF SERVICE: 01/13/2019 SUBJECTIVE: He had an episode of chest discomfort, that was evaluated last night with a CT angiogram. CT angiogram did not show any clots. He described it as retrosternal. The hydrocodone relieved his discomfort. We are still waiting for pathology. We have asked him to use the morphine that is ordered as a p.r.n. if this recurs. OBJECTIVE: VITAL SIGNS: He is afebrile. Heart rate is 76, respiratory rate is 18, oximetry is 91, blood pressure is 133/68. GENERAL: He is now in no distress. LUNGS: He is not wheezing. HEART: Regular rhythm. ABDOMEN: Soft. LABORATORY DATA: White count 11.8, hemoglobin down to 6.5, platelets 629. Sodium 126, potassium 4, chloride 96, bicarb 24, BUN 6, creatinine 0.63. IMPRESSION: 1. Large lung mass, undoubtedly malignant. Awaiting pathology from the bronchoscopy. 2. Syndrome of inappropriate antidiuretic hormone secretion. 3. Chest discomfort of unclear etiology, relieved with hydrocodone. 4. Severe anemia. He would benefit from transfusion today of 2 units of packed cells. 5. Reactive thrombocytosis associated with his malignancy. His platelets have been as high as 852,000. Hopefully, once his pathology results are back, he can initiate treatment. 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 Job ID: [id number]
--- NOTE | 2019-01-13 13:43 | NM ---
WHOLE BODY BONE SCAN: HISTORY: Lung cancer RADIOPHARMACEUTICAL: 30 mCi technetium 99m-MDP injected intravenously COMPARISON: None CORRELATION: CT chest, abdomen and pelvis of 01/09/2019 FINDINGS: There is scattered degenerative activity in the appendicular skeleton. No other abnormal areas of tracer localization are seen in the skeleton to suggest metastatic disease . Tracer excretion through the kidneys is within normal limits. IMPRESSION: No scintigraphic evidence of osseous metastatic disease.
--- NOTE | 2019-01-13 14:34 | PDOC.HOSPP ---
- Subjective Encounter Date: 01/13/19 Encounter Time: 14:32 Subjective: Doing ok. He has not had BM today, but feels like it will be better by am. He is trying to eat and take Ensure as he can. Ambulating a bit. Breathing is better than it was originally. - Objective Vital Signs & Weight: Vital Signs (12 hours) Temp Pulse Resp BP BP Pulse Ox 01/13/19 14:00 98.5 F 82 18 160/76 H 95 01/13/19 12:35 78 18 143/83 H 99 01/13/19 12:20 88 18 153/86 H 100 01/13/19 12:10 97.5 F L 82 16 146/80 H 100 01/13/19 11:21 98.3 F 82 16 145/69 H 95 01/13/19 08:51 95 01/13/19 07:48 98.2 F 76 18 133/68 91 L 01/13/19 05:20 97.7 F 92 18 130/55 L 99 Weight Admit Weight 124 lb 11.2 oz Weight 124 lb 11.2 oz I&O: 01/12/19 01/13/19 01/14/19 06:59 06:59 06:59 Intake Total 600 0 Balance 600 0 Result Diagrams: 01/13/19 05:06 01/12/19 09:19 ROS - Medication Medications: Active Medications Generic Name Dose Route Start Last Admin Trade Name Freq PRN Reason Stop Dose Admin Acetaminophen 650 mg 01/09/19 20:46 01/11/19 13:44 Tylenol PO 650 mg Q6H PRN Administration Headache/Fever/Mild Pain (1-3) Hydrocodone Bitart/Acetaminophen 1 tab 01/09/19 20:46 01/13/19 12:32 [place] 5/325 PO 1 tab Q4H PRN Administration Moderate Pain (4-6) Hydrocodone Bitart/Acetaminophen 2 tab 01/09/19 20:46 01/13/19 03:15 [place] 5/325 PO 2 tab Q4H PRN Administration Severe Pain (7-10) Enoxaparin Sodium 40 mg 01/12/19 09:00 01/13/19 08:44 Lovenox SC 40 mg 0900 NAHOMI Administration Famotidine 20 mg 01/09/19 21:00 01/13/19 08:43 Pepcid PO 20 mg BID NAHOMI Administration Sodium Chloride 1,000 mls @ 50 mls/hr 01/10/19 12:45 01/13/19 12:28 Normal Saline 0.9% IV 1,000 mls .Q20H NAHOMI Administration Morphine Sulfate 2 mg 01/09/19 21:13 01/13/19 14:02 Morphine IVP 2 mg Q4H PRN Administration Moderate Pain (4-6) Nicotine 21 mg 01/09/19 21:00 01/12/19 22:28 Nicoderm Patch TD 21 mg Q24HR NAHOMI Administration Ondansetron HCl 4 mg 01/09/19 20:46 01/12/19 06:05 Zofran IVP 4 mg Q6H PRN Administration Nausea/Vomiting - Exam NAD, awake alert Neck: supple, symmetric, no JVD, no thyromegaly, no lymphadenopathy, no carotid bruit Heart: RRR, no murmur, no gallops, no rubs, normal peripheral pulses Respiratory - other findings: Basilar rales, L>R. Gastrointestinal: soft, non-tender, non-distended, normal bowel sounds, no palpable masses, no hepatomegaly, no splenomegaly, no bruit Musculoskeletal: normal tone, generalized weakness Psychiatric: normal affect, normal behavior, A&O x 3 Hosp A/P (1) Lung mass Code(s): R91.8 - OTHER NONSPECIFIC ABNORMAL FINDING OF LUNG FIELD Status: Acute (2) Anemia Code(s): D64.9 - ANEMIA, UNSPECIFIED Status: Acute (3) Hyponatremia Code(s): E87.1 - HYPO-OSMOLALITY AND HYPONATREMIA Status: Acute (4) Nausea & vomiting Code(s): R11.2 - NAUSEA WITH VOMITING, UNSPECIFIED Status: Acute (5) Abdominal pain Code(s): R10.9 - UNSPECIFIED ABDOMINAL PAIN Status: Acute - Plan Lung mas biopsied. Path pending. Bone scan negative. Transfused two units today. Recheck in am. Nausea better. Modest PO intake.
--- NOTE | 2019-01-13 14:39 | PDOC.MOPN ---
Interval History: doing ok, pain controlled with morphine. - Vital Signs Vital Signs: Vital Signs (12 hours) Temp Pulse Resp BP BP Pulse Ox 01/13/19 14:00 98.5 F 82 18 160/76 H 95 01/13/19 12:35 78 18 143/83 H 99 01/13/19 12:20 88 18 153/86 H 100 01/13/19 12:10 97.5 F L 82 16 146/80 H 100 01/13/19 11:21 98.3 F 82 16 145/69 H 95 01/13/19 08:51 95 01/13/19 07:48 98.2 F 76 18 133/68 91 L 01/13/19 05:20 97.7 F 92 18 130/55 L 99 Weight Admit Weight 124 lb 11.2 oz Weight 124 lb 11.2 oz - Physical Exam General: Alert, Oriented x3, No acute distress HEENT: Atraumatic, PERRLA, EOMI, Mucous membr. moist/pink Lungs: Clear to auscultation, Normal air movement Cardiovascular: Regular rate, Normal S1, Normal S2, No murmurs, Gallops, Rubs Abdomen: Normal bowel sounds, Soft, No tenderness, No hepatospenomegaly, No masses Extremities: No clubbing, No cyanosis, No edema, Normal pulses, No tenderness/ swelling Skin: No rashes, No breakdown, No significant lesion Neurological: Normal speech Psych/Mental Status: Mental status NL - Labs Result Diagrams: 01/13/19 05:06 01/12/19 09:19 Lab results: Laboratory Results - last 24 hr 01/13/19 09:32: Blood Type O POSITIVE, Antibody Screen NEGATIVE, Crossmatch See Detail 01/13/19 05:06: WBC 11.8 H, RBC 2.36 L, Hgb 6.5 L, Hct 19.9 L, MCV 84.5, MCH 27.6, MCHC 32.7, RDW 14.1, Plt Count 629 H, MPV 6.3 L, Neutrophils % 77.0 H, Lymphocytes % 13.6 L, Monocytes % 7.8, Eosinophils % 1.4, Basophils % 0.1, Neutrophils # 9.1 H, Lymphocytes # 1.6, Monocytes # 0.9 H, Eosinophils # 0.2, Basophils # 0.0 01/12/19 18:00: Urine Sodium 184, Urine Potassium 26.0 01/12/19 18:00: Urine Osmolality 551 Status: lab reviewed by me A/P - Problem (1) Lung mass Current Visit: Yes Code(s): R91.8 - OTHER NONSPECIFIC ABNORMAL FINDING OF LUNG FIELD Status: Acute - Plan Plan: bone scan negative await path for treatment recs continue pain control
[2019-01-13] MEDS: Nicotine 21 MG PATCH TD SCH (21:06)
[2019-01-14] MEDS: HYDROcodone/Acetaminophen 5/325 mg Tablet PO PRN ×3 (01:16→14:39)
[2019-01-14 06:06] LABS: #Eosinphils 0.3 thou/uL (0.0-0.7); #Lymphocytes 1.6 thou/uL (1.20-3.40); #Monocytes 0.8 thou/uL (0.11-0.59); #Neutrophils 10.1 thou/uL (1.40-6.50); %Basophils 0.3 % (0.0-1.0); %Eosinophils 2.2 % (0.0-10.0); %Lymphocytes 12.7 % (21.0-51.0); %Monocytes 6.3 % (0.0-10.0); %Neutrophils 78.5 % (42.0-75.0); Hemoglobin 8.5 g/dL (14.0-18.0); Mean Corpuscular HGB CONC 32.1 g/dL (32.0-36.0); Mean Corpuscular Hemoglobin 27.1 pg (27.0-31.0); Mean Corpuscular Volume 84.4 fL (78.0-98.0); Mean Platelet Volume 6.2 fL (7.4-10.4); Platelet Count 651 thou/uL (130-400); RBC Distribution Width 13.9 % (11.5-14.5); Red Blood Cell (RBC) Count 3.15 mill/uL (4.70-6.10); White Blood Cell (WBC) Count 12.9 thou/uL (4.8-10.8)
[2019-01-14 06:26] LABS: ALT (SGPT) 13 U/L (8-55); AST (SGOT) 27 U/L (5-34); Albumin 2.5 g/dL (3.4-4.8); Alkaline Phosphatase 112 U/L (40-150); Anion Gap 11 mmol/L (10-20); BUN (Urea Nitrogen) 8 mg/dL (8.4-25.7); Bilirubin, Total 0.5 mg/dL (0.2-1.2); Calc. Creatinine Clearance 97 mL/min (70-130); Calcium 8.1 mg/dL (7.8-10.44); Carbon Dioxide 26 mmol/L (23-31); Chloride 96 mmol/L (98-107); Estimated GFR-MDRD Greater than 90; Glucose 95 mg/dL (80-115); Potassium 4.1 mmol/L (3.5-5.1); Protein, Total 5.5 g/dL (5.8-8.1); Sodium 129 mmol/L (136-145)
[2019-01-14] MEDS: Famotidine 20 MG TAB PO SCH ×2 (08:36→20:50)
[2019-01-14] MEDS: Enoxaparin Sodium 40 MG/0.4 ML SYRINGE SC SCH (08:36)
[2019-01-14] MEDS ORDERED: Milk Of Magnesia 30 ML UDCUP PO PRN (13:09)
[2019-01-14] MEDS ORDERED: Polyethylene Glycol 3350 17 GM Packet PO PRN (13:11)
--- NOTE | 2019-01-14 14:30 | PRG ---
DATE OF SERVICE: 01/14/2019 SUBJECTIVE: The patient reports that he is struggling with his fluid restrictions. He has very dry mouth and sore throat following his bronchoscopy and feels somewhat desperate to be able to drink a little bit along the way in order to help resolve that. He has been using some hard candy or lozenge type remedies which have not thus far been adequate. He is also confused because he reports that he was told by doctors prior to this that he should be drinking more fluids and taking more Ensure type remedies. He also reports pain in his abdomen. He says he initially had pain in his chest, and pain medicines were initiated, but now he only takes them for abdominal pain. They are in the mid abdomen and walk the way across his abdomen to the right upper quadrant. He states these last about 2-1/2 hours if unmedicated and tend to crescendo during that time. He also reports that he has not had a bowel movement for 3 days now. He is getting up around a little bit. He says he is not doing a whole lot because he has some aching. OBJECTIVE: VITAL SIGNS: Temperature is 96.8, pulse 75, respirations 18, O2 saturation 93% on 2 L, blood pressure 179/73. GENERAL APPEARANCE: Thin age-appropriate male. He is in no distress. Awake, alert, oriented, pleasant, cooperative. HEART: Regular rate and rhythm, although his PMI is displaced medially. LUNGS: Significantly decreased breath sounds on the left base with right basilar rales. ABDOMEN: Feels borderline distended. He does have slightly diminished, but active bowel sounds. He has tenderness to palpation in the mid epigastrium across the right upper quadrant, but no masses are palpable. Liver edge is not palpable. EXTREMITIES: No cyanosis, clubbing, or edema. LABORATORY DATA: White count 12.9, hemoglobin 8.5, platelets 651. Sodium 129, potassium 4.1, chloride 96, CO2 is 26, BUN 8, and creatinine 0.64. LFTs normal. IMPRESSION AND PLAN: 1. Lung mass. The patient appears to have cancer, most likely lung primary. Based on his initial CT chest, abdomen, and pelvis, this appears to be a widely metastatic disease with numerous metastases scattered throughout multiple organ systems and the musculoskeletal system. Unfortunately, his pathology report today came back only with necrotic tissue and we are unable to get a good tissue diagnosis. I have discussed the case with Dr. Aragon. He will be reviewing the scans. It is likely that we will have Interventional Radiology try to approach one of the other masses to help establish the tissue diagnosis. Also, I discussed this with the patient and his at length. 2. Abdominal pain. His initial CT scan did not reveal any metastatic disease to the liver or other pathology of the liver. He does have masses in the spleen on the opposite side, I suspect this is related to constipation. 3. Constipation. The patient is taking some pain medications which unfortunately are likely counterproductive. We will go ahead and start him on stool softeners and give him some p.r.n.'s for constipation and courage him to get up and ambulate more. 4. Hyponatremia. 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 The numbers have not significantly changed given the levels of IV fluids and free water restrictions. We will go ahead and liberalize his free water just a bit in order to palliate his complaints and stop the IV fluid in turn. We will continue to monitor his numbers closely. If they start to drift downward, we may need to get Nephrology involved. 5. Anemia, presumably due to GI bleed. His hemoglobin appears to be stable. We will continue to monitor daily. Job ID: [id number]
--- NOTE | 2019-01-14 16:29 | PRG ---
DATE OF SERVICE: 01/14/2019 SERVICE: Pulmonary Medicine. INTERVAL HISTORY: The patient is breathing a little bit better compared to yesterday. He has been ambulating well. Denies any current fevers or chills. He is having night sweats. He is having hemoptysis. There has been no interval change to his condition. PHYSICAL EXAMINATION: VITAL SIGNS: Afebrile currently, pulse 75, blood pressure 179/73, respirations 18, saturation 93% on 2 L nasal cannula. GENERAL: The patient is awake and alert, in no apparent distress. LUNGS: There is reduced air entry on the left. There is decent air entry on the right, but prolonged expiratory phase and crackles are identified. HEART: Normal rate. Regular. ABDOMEN: Soft, nontender, and nondistended. Bowel sounds are positive. MUSCULOSKELETAL: No cyanosis or clubbing. No pitting in the bilateral lower extremities. NEUROLOGIC: Grossly nonfocal. LABORATORY DATA: WBC 12.9, hemoglobin 8.5, platelets 651,000. Sodium 129. Basic metabolic profile and liver function studies are otherwise unremarkable. Sodium osmolality is low. Urinalysis is unremarkable. Malaria is negative. Blood cultures x2, urine culture, respiratory culture all negative to date. IMAGING: Bone scan demonstrates no evidence of osseous metastatic disease. CTA of the chest demonstrates bilateral pleural effusions, left greater than right. There is a large left hilar mass. Minimal aeration is present distal to the left mainstem lesion. ASSESSMENT: 1. Lung mass. 2. Widely metastatic process, suspect lung cancer. 3. Syndrome of inappropriate antidiuretic hormone secretion. 4. Anemia. DISCUSSION AND PLAN: Because the biopsy was nondiagnostic from the bronchoscopy , we will talk to Interventional Radiology and/or Surgery about getting a sample from the left axilla. Pulmonary/Critical Care will continue to follow along for the time being. Job ID: [id number] [facility]
[2019-01-14] MEDS ORDERED: Furosemide 20 MG/2 ML VIAL SLOW IVP SCH (16:30)
[2019-01-14] MEDS: Senokot 8.6 MG TAB PO SCH (20:50)
[2019-01-14] MEDS: Nicotine 21 MG PATCH TD SCH (20:51)
[2019-01-14] MEDS: Ondansetron PF 4 MG/2 ML Vial IVP PRN (22:50)
[2019-01-15] MEDS: HYDROcodone/Acetaminophen 5/325 mg Tablet PO PRN ×3 (00:41→16:27)
[2019-01-15 06:06] LABS: #Eosinphils 0.2 thou/uL (0.0-0.7); #Lymphocytes 1.9 thou/uL (1.20-3.40); #Monocytes 0.9 thou/uL (0.11-0.59); #Neutrophils 10.6 thou/uL (1.40-6.50); %Eosinophils 1.8 % (0.0-10.0); %Lymphocytes 14.1 % (21.0-51.0); %Monocytes 6.5 % (0.0-10.0); %Neutrophils 77.6 % (42.0-75.0); Hemoglobin 8.9 g/dL (14.0-18.0); Mean Corpuscular HGB CONC 33.1 g/dL (32.0-36.0); Mean Corpuscular Hemoglobin 28.1 pg (27.0-31.0); Mean Corpuscular Volume 85.1 fL (78.0-98.0); Mean Platelet Volume 6.1 fL (7.4-10.4); Platelet Count 701 thou/uL (130-400); RBC Distribution Width 14.1 % (11.5-14.5); Red Blood Cell (RBC) Count 3.17 mill/uL (4.70-6.10); White Blood Cell (WBC) Count 13.7 thou/uL (4.8-10.8)
[2019-01-15 06:30] LABS: Anion Gap 12 mmol/L (10-20); BUN (Urea Nitrogen) 10 mg/dL (8.4-25.7); Calc. Creatinine Clearance 94 mL/min (70-130); Calcium 8.1 mg/dL (7.8-10.44); Carbon Dioxide 27 mmol/L (23-31); Chloride 93 mmol/L (98-107); Estimated GFR-MDRD Greater than 90; Glucose 98 mg/dL (80-115); Potassium 4.1 mmol/L (3.5-5.1); Sodium 128 mmol/L (136-145)
[2019-01-15] MEDS: Enoxaparin Sodium 40 MG/0.4 ML SYRINGE SC SCH (07:58)
[2019-01-15] MEDS: Famotidine 20 MG TAB PO SCH ×2 (07:58→20:47)
[2019-01-15] MEDS ORDERED: Furosemide 20 MG/2 ML VIAL SLOW IVP SCH (12:15)
--- NOTE | 2019-01-15 12:22 | PRG ---
DATE OF SERVICE: 01/15/2019 SERVICE: Pulmonary Medicine. INTERVAL HISTORY: The patient is doing really well from breathing standpoint. He is able to walk the halls twice yesterday. He had much less dyspnea that limited his activity. Otherwise, there has been no interval change to his condition. He is not coughing up any blood. PHYSICAL EXAMINATION: VITAL SIGNS: Afebrile, pulse 66, blood pressure 153/76, respirations 18, and saturation 92% on 2 L nasal cannula. GENERAL: The patient is awake and alert, in no apparent distress. LUNGS: There is decreased air entry on the left. There is no prolonged expiratory phase. Rhonchi are present. Crackles are much improved. No wheezing. HEART: Normal rate and regular. ABDOMEN: Soft, nontender, and nondistended. Bowel sounds are positive. MUSCULOSKELETAL: No cyanosis or clubbing. There is trace pitting in the bilateral lower extremities. NEUROLOGIC: Grossly nonfocal. LABORATORY DATA: WBC 13.7, hemoglobin 8.9, platelets 701,000 and gently up-trending. Sodium 128. Basic metabolic profile is otherwise unremarkable. Bicarb is 27 and stable. Urinalysis is unremarkable. ASSESSMENT: 1. Lung mass. 2. Widely metastatic process, suspect lung cancer, bronch biopsy demonstrated necrotic tissue. 3. Syndrome of inappropriate antidiuretic hormone secretion. 4. Anemia, stable. DISCUSSION AND PLAN: The patient is going down to the operating room for exploration of the left axilla and hopefully lymph node excision. I will give the patient one additional dose of Lasix today. Pulmonary/Critical Care will continue to follow along. I will give him a laboratory holiday tomorrow morning. Job ID: [id number] [facility]
--- NOTE | 2019-01-15 13:36 | CON ---
DATE OF CONSULTATION: 01/15/2019 CHIEF COMPLAINT: Lung mass. HISTORY OF PRESENT ILLNESS: This is a 63-year-old male, who presents with a history of left lung mass, diffuse lymphadenopathy. Previous biopsies via FNA. Did not give definitive results. I have been consulted for potential biopsy of a left axillary lymph node. The patient notes pain all over. PAST MEDICAL HISTORY: He denies. PAST SURGICAL HISTORY: He denies. SOCIAL HISTORY: Smokes 3 to 4 packs of cigarettes a day. Lives at home with his . No other drugs or alcohol. REVIEW OF SYSTEMS: Ten system review of systems is otherwise negative. PHYSICAL EXAMINATION: VITAL SIGNS: Blood pressure is 150/76, pulse is 66, respirations 18. He is afebrile. HEENT: Sclerae anicteric. Oropharynx clear. NECK: No lymphadenopathy. CHEST: Coarse breath sounds on the left. HEART: Regular rate and rhythm. ABDOMEN: Soft. Examination of the left axilla reveals to be a likely palpable abnormality in the deep left axilla. No obvious groin lymphadenopathy. LABORATORY DATA: Hemoglobin is 8.9 and platelet count is 701. ASSESSMENT: Malignancy including left lung of uncertain etiology. PLAN: Definitive biopsy of left axillary node tomorrow. Risks, benefits, and alternatives were discussed. He gives consent. We will do this tomorrow. Job ID: [id number]
[2019-01-15] MEDS ORDERED: Fleet Enema 133 ML BOT PR PRN (16:57)
[2019-01-15] MEDS ORDERED: Magnesium Citrate 300 ML BOT PO SCH (17:00)
--- NOTE | 2019-01-15 17:01 | PDOC.HOSPP ---
- Subjective Subjective: Still has not had a BM. Meds did not help with that. Still having some intermittent abdominal pain that is fairly severe. Still has some mild hemoptysis. - Objective Vital Signs & Weight: Vital Signs (12 hours) Temp Pulse Resp BP Pulse Ox 01/15/19 16:19 99.3 F 82 18 154/72 H 92 L 01/15/19 11:35 98.1 F 66 18 153/76 H 92 L 01/15/19 08:00 97.6 F 68 18 145/75 H 94 L Weight Admit Weight 124 lb 11.2 oz Weight 124 lb 11.2 oz I&O: 01/14/19 01/15/19 01/16/19 06:59 06:59 06:59 Intake Total 2950 1220 690 Balance 2950 1220 690 Result Diagrams: 01/15/19 05:28 01/15/19 05:28 ROS - Medication Medications: Active Medications Generic Name Dose Route Start Last Admin Trade Name Freq PRN Reason Stop Dose Admin Acetaminophen 650 mg 01/09/19 20:46 01/11/19 13:44 Tylenol PO 650 mg Q6H PRN Administration Headache/Fever/Mild Pain (1-3) Hydrocodone Bitart/Acetaminophen 1 tab 01/09/19 20:46 01/13/19 12:32 [place] 5/325 PO 1 tab Q4H PRN Administration Moderate Pain (4-6) Hydrocodone Bitart/Acetaminophen 2 tab 01/09/19 20:46 01/15/19 16:27 [place] 5/325 PO 2 tab Q4H PRN Administration Severe Pain (7-10) Enoxaparin Sodium 40 mg 01/12/19 09:00 01/15/19 07:58 Lovenox SC 40 mg 0900 NAHOMI Administration Famotidine 20 mg 01/09/19 21:00 01/15/19 07:58 Pepcid PO 20 mg BID NAHOMI Administration Magnesium Hydroxide 30 ml 01/14/19 13:09 01/14/19 17:23 Milk Of Magnesium PO 30 ml DAILYPRN PRN Administration Constipation Morphine Sulfate 2 mg 01/09/19 21:13 01/13/19 14:02 Morphine IVP 2 mg Q4H PRN Administration Moderate Pain (4-6) Nicotine 21 mg 01/09/19 21:00 01/14/19 20:51 Nicoderm Patch TD 21 mg Q24HR NAOHMI Administration Ondansetron HCl 4 mg 01/09/19 20:46 01/14/19 22:50 Zofran IVP 4 mg Q6H PRN Administration Nausea/Vomiting Polyethylene Glycol 17 gm 01/14/19 13:11 01/15/19 10:53 Miralax PO 17 gm DAILYPRN PRN Administration Constipation Senna 2 tab 01/14/19 21:00 01/14/19 20:50 Senokot PO 2 tab HS NAHOMI Administration - Exam NAD Heart: RRR, no murmur, no gallops, no rubs, normal peripheral pulses Respiratory - other findings: diminished left base. Gastrointestinal: soft, non-distended, normal bowel sounds, no palpable masses, no hepatomegaly, no splenomegaly Skin: normal turgor Neurological: CN's grossly intact Psychiatric: normal affect, normal behavior, A&O x 3 Hosp A/P (1) Lung mass Code(s): R91.8 - OTHER NONSPECIFIC ABNORMAL FINDING OF LUNG FIELD Status: Acute (2) Anemia Code(s): D64.9 - ANEMIA, UNSPECIFIED Status: Acute (3) Hyponatremia Code(s): E87.1 - HYPO-OSMOLALITY AND HYPONATREMIA Status: Acute (4) Nausea & vomiting Code(s): R11.2 - NAUSEA WITH VOMITING, UNSPECIFIED Status: Acute (5) Abdominal pain Code(s): R10.9 - UNSPECIFIED ABDOMINAL PAIN Status: Acute - Plan Lung mass biopsy by bronch was non-diagnostic. Left axillary LN biopsy tomorrow. Bone scan negative. Hemoglobin stable. Nausea better. Modest PO intake. Still having abd pain with constipation. Failed Senna, MOM, Miralax. Add Mg Citrate, Fleets. Na did not change significantly with stopping IVF and liberalizing po intake. He is asymptomatic and this appears to be more chronic in nature at this point. If his constipation and abd pain can resolve, hgb and Na remain stable, he may able to have OP follow up after biopsy.
[2019-01-15] MEDS: Nicotine 21 MG PATCH TD SCH (20:47)
[2019-01-15] MEDS: Senokot 8.6 MG TAB PO SCH (20:48)
[2019-01-16] MEDS: HYDROcodone/Acetaminophen 5/325 mg Tablet PO PRN ×3 (03:20→15:17)
[2019-01-16] MEDS: Famotidine 20 MG TAB PO SCH (07:53)
[2019-01-16] MEDS: Enoxaparin Sodium 40 MG/0.4 ML SYRINGE SC SCH (07:53)
[2019-01-16] MEDS: Acetaminophen 325 MG TAB PO PRN (10:30)
[2019-01-16] MEDS ORDERED: Fentanyl 100 MCG/2 ML VIAL ONE (12:41)
[2019-01-16] MEDS ORDERED: predniSONE 20 MG TAB PO SCH (12:45)
[2019-01-16] MEDS ORDERED: Lidocaine 2% PF 5 ML VIAL ONE (12:54)
[2019-01-16] MEDS ORDERED: Bupivacaine HCl 0.5%/Epinephrine 1:200,000/PF 30 ml Vial ONE (12:54)
--- NOTE | 2019-01-16 12:58 | PRG ---
DATE OF SERVICE: 01/16/2019 SERVICE: Pulmonary Medicine. INTERVAL HISTORY: The patient will be going down for surgical procedure today to have the lymph node removed from the left axilla. He is having increasing shortness of breath and cough which is starting to bring up small amounts of yellow sputum. Otherwise, he has no complaints of chest pain, nausea, vomiting, fevers, or chills. He continues to cough. He is bringing up a little bit of clear phlegm. He did not have any events overnight. His shortness of breath continues to improve a little bit, but he has persistent dyspnea whenever he is getting around. PHYSICAL EXAMINATION: VITAL SIGNS: Afebrile, pulse 75, blood pressure 162/73, respirations 20, and saturation 97% on 2 L nasal cannula. GENERAL: The patient is awake and alert, in no apparent distress. LUNGS: Decent air entry on the right. Decreased air entry on the left. There is no prolonged expiratory phase or crackles appreciated today. There are rhonchi on the left. HEART: Normal rate and regular. ABDOMEN: Soft, nontender, and nondistended. Bowel sounds are positive. MUSCULOSKELETAL: No cyanosis or clubbing. There is no pitting in the bilateral lower extremities. NEUROLOGIC: Grossly nonfocal. LABORATORY DATA: WBC 13.7, hemoglobin 8.9, platelets 701,000. Sodium 128. Basic metabolic profile is otherwise unremarkable. Blood cultures x2, urine culture, and respiratory culture are all negative to date. ASSESSMENT: 1. Widely metastatic process, suspect lung cancer, lung biopsy demonstrated necrotic tissue. 2. COPD with acute exacerbation. 3. Syndrome of inappropriate antidiuretic hormone secretion. 4. Anemia, stable. DISCUSSION AND PLAN: The patient is stable for transition out of the hospital from a purely respiratory standpoint. I will put him on a brief course of steroids and antibiotics. We are going to collect this lymph node. He needs close followup with Oncology in the outpatient setting. If he remains inhouse, Dr. Wilder will resume following Bobbi Harmeet in the morning. Job ID: [id number] MTDD
[2019-01-16] MEDS ORDERED: Amoxicillin/Potassium Clav 875 MG TAB PO SCH ×2 (13:00→21:00)
[2019-01-16] MEDS ORDERED: ceFAZolin Sodium (SDC) 2 GM/100 ML BAG ONE (13:04)
[2019-01-16] MEDS ORDERED: traMADol HCl 50 MG TAB PO PRN ×2 (13:52)
[2019-01-16] MEDS ORDERED: Ibuprofen 600 MG TAB PO PRN (13:52)
[2019-01-16] MEDS ORDERED: Acetaminophen 500 MG TAB PO PRN (13:52)
[2019-01-16] MEDS ORDERED: Promethazine HCl 25 MG/ML VIAL IM PRN (13:54)
[2019-01-16] MEDS ORDERED: Promethazine HCl 25 MG/ML VIAL SLOW IVP PRN (13:54)
[2019-01-16] MEDS ORDERED: Ondansetron HCl/PF 4 MG/2 ML Vial IVP PRN (13:54)
[2019-01-16 14:49] VITALS: TEMP 97.6
[2019-01-16 17:19] VITALS: BP 147/74
[2019-01-17] MEDS ORDERED: predniSONE 20 MG TAB PO SCH (08:00)
--- NOTE | 2019-01-17 09:17 | OP ---
DATE OF PROCEDURE: 01/16/2019 PREOPERATIVE DIAGNOSIS: Lung mass with axillary lymphadenopathy. POSTOPERATIVE DIAGNOSIS: Lung mass with axillary lymphadenopathy. PROCEDURE PERFORMED: Excisional biopsy and resectional sharp, left axillary node. ANESTHESIA: General, local 0.5% Marcaine with epinephrine 30 mL mixed with 2% Xylocaine 10 mL. DESCRIPTION OF PROCEDURE: The patient was taken to the operating room, where under general anesthesia, left axilla was clipped of hair, prepared with ChloraPrep and draped in routine fashion. Incision was made in the left axilla, carried down through skin, subcutaneous tissue, and deep fascia excising the deep axillary node. Hemostasis was gained with the cautery. Node was submitted to Pathology. Subcutaneous tissue was approximated with 3-0 Monocryl, skin with subdermal 4-0 Monocryl, and [place] glue applied. The patient tolerated the procedure well. Job ID: [id number]
--- NOTE | 2019-01-17 12:33 | DIS ---
DATE OF ADMISSION: 01/09/2019 DATE OF DISCHARGE: 01/16/2019 DISCHARGE DIAGNOSES: 1. Widely metastatic neoplasm, most concerning for lung primary. 2. Abdominal pain. 3. Nausea and vomiting. 4. Leukocytosis. 5. Anemia. 6. Hyponatremia. 7. Constipation. HISTORY OF PRESENT ILLNESS: This patient is a 63-year-old male who presents to the emergency department complaining of some abdominal pain, nausea, and vomiting. The patient also reported a 30-pound unintentional weight loss and some hemoptysis in the emergency department. The patient had a CT scan of the chest, abdomen, and pelvis performed, which revealed a large centrally necrotic left hilar mass with mediastinal invasion and lymphangitic spread of tumor in the lingula, left upper lobe with extensive soft tissue metastases below the diaphragm including the omentum, subcapsular, right kidney, spleen, and mesentery. There were soft tissue masses along the right gluteus jackie fascia and left subscapularis muscle, extension of tumor into the left subclavian vein, partial tumor thrombosis, parietal pericardial studding, attenuation of the left main pulmonary artery with obliteration of the left upper lobe pulmonary artery, malignant pleural effusion. With these findings, the patient was admitted to the hospital. He had significant anemia and ultimately received a total of 3 units of blood. At which time, he appeared to have some stabilization. He was seen by GI and no further workup was felt to be indicated. The patient underwent bronchoscopy on 01/11/2019, with biopsies and washings taken from the lesion. Some time after, he developed an acute episode of chest pain, shortness of breath, tachycardia, sats were about 91% and subsequently underwent a CTA of the chest, which showed significant change in appearance of the left chest with increasing left-sided effusion with essentially complete collapse of the left upper lobe and also has some consolidation changes of the left lower lobe with large necrotic left hilar lung mass again seen, but no evidence of a PE. The patient also had a bone scan performed with the recommendation of Oncology, which revealed no evidence of bone metastases. Endobronchial biopsies only revealednecrotic tissue and were non-diagnostic. In reviewing his scans with Pulmonology, there were multiple peripheral opportunities for biopsy. Surgery was consulted and they performed a left axillary node biopsy where there appeared to be metastatic disease as well. He did well postprocedure and at that point, was felt to be stable for discharge. During the patient's stay, he also continued to have some abdominal pain. Interestingly, with his widely metastatic disease, he did not have liver metastases. It was felt that at that point, some of his abdominal pain was related to constipation issues. He took multiple medications, and he was finally able to have bowel movements and his pain did improve substantially. Once he was fully biopsied, his hemoglobin was stable and he was adequately comfortable, and he was felt stable for discharge for outpatient followup. PHYSICAL EXAMINATION: VITAL SIGNS: On the day of discharge, temperature is 97.6, pulse 77, respirations 18, O2 saturation 90% on room air, and BP 147/74. GENERAL: He was awake, alert, oriented. HEART: Regular rate and rhythm. LUNGS: Diminished on the left and some scattered rales throughout. ABDOMEN: Soft, nontender. EXTREMITIES: No cyanosis, clubbing, or edema. DISPOSITION: The patient is discharged home in stable condition with knowledge of his overall prognosis is going to be very guarded. DISCHARGE MEDICATIONS: He will be on: 1. Augmentin 875 one p.o. b.i.d. 2. Pepcid 20 mg b.i.d. 3. Prednisone 40 mg daily. 4. Sennakot S 2 po q day. 5. Tramadol 2 p.o. q.6 hours p.r.n. pain. FOLLOWUP: He is to follow up with Dr. Turner in 2-3 weeks, Dr. Hernandez on at 2:15 p.m. He can return to the hospital should he have any problems prior to that time. Time spent in discharge activities, including greater than 50% of the time in face to face contact with the patient was 38 min. Job ID: [id number] [facility]
--- NOTE | 2019-01-17 22:32 | EKG ---
Test Reason : PREOP Blood Pressure : / mmHG Vent. Rate : 087 BPM Atrial Rate : 087 BPM P-R Int : 126 ms QRS Dur : 100 ms QT Int : 366 ms P-R-T Axes : 052 053 040 degrees QTc Int : 440 ms Normal sinus rhythm Normal ECG No previous ECGs available Confirmed by Satya GARCIA ([id number]) on 01/17/2019 10:32:40 PM Referred By: MILAD Confirmed By:Satya GARCIA
--- NOTE | 2019-01-17 22:40 | EKG ---
Test Reason : STAT Blood Pressure : / mmHG Vent. Rate : 092 BPM Atrial Rate : 092 BPM P-R Int : 122 ms QRS Dur : 098 ms QT Int : 340 ms P-R-T Axes : 054 060 036 degrees QTc Int : 420 ms Normal sinus rhythm Normal ECG When compared with ECG of 11-JAN-2019 08:13, (Unconfirmed) No significant change was found Confirmed by Satya GARCIA ([id number]) on 01/17/2019 10:39:41 PM Referred By: LAURO Confirmed By:Satya GARCIA
== END 2019-01-16 18:20 | disposition home or self-care (01) | DRG 987 ==
LOC: SCSER 09:04 → ERHOLD 11:00 → T4-B 17:40
PROVIDERS: ADMIT Internal Medicine; ATTEND Internal Medicine
PROC: 30233N1 Transfusion of Nonautologous Red Blood Cells into Peripheral Vein, Percutaneous Approach (ICD-10-PCS; principal; 2019-01-09)
PROC: 0BD78ZX Extraction of Left Main Bronchus, Via Natural or Artificial Opening Endoscopic, Diagnostic (ICD-10-PCS; 2019-01-11)
PROC: 0B978ZZ Drainage of Left Main Bronchus, Via Natural or Artificial Opening Endoscopic (ICD-10-PCS; 2019-01-11)
PROC: 0BDL8ZX Extraction of Left Lung, Via Natural or Artificial Opening Endoscopic, Diagnostic (ICD-10-PCS; 2019-01-11)
PROC: 07B60ZX Excision of Left Axillary Lymphatic, Open Approach, Diagnostic (ICD-10-PCS; 2019-01-16)
DX: C34.12 Malignant neoplasm of upper lobe, left bronchus or lung (principal); J85.0 Gangrene and necrosis of lung; E22.2 Syndrome of inappropriate secretion of antidiuretic hormone; K92.2 Gastrointestinal hemorrhage, unspecified; R64 Cachexia; J91.0 Malignant pleural effusion; C79.01 Secondary malignant neoplasm of right kidney and renal pelvis; C78.6 Secondary malignant neoplasm of retroperitoneum and peritoneum; C78.89 Secondary malignant neoplasm of other digestive organs; R04.89 Hemorrhage from other sites in respiratory passages; F17.210 Nicotine dependence, cigarettes, uncomplicated; Z79.899 Other long term (current) drug therapy; D72.829 Elevated white blood cell count, unspecified; D63.0 Anemia in neoplastic disease; R63.0 Anorexia; Z68.20 Body mass index [BMI] 20.0-20.9, adult; D47.3 Essential (hemorrhagic) thrombocythemia; R59.1 Generalized enlarged lymph nodes; K59.03 Drug induced constipation; E86.0 Dehydration; K59.00 Constipation, unspecified
CPT/HCPCS: 36415; 36416; 36430; 71046; 71260; 71275; 74177; 78306; 80048; 80053; 81003; 82274; 82436; 83605; 83930; 83935; 84133; 84300; 85025; 85060; 86850; 86900; 86901; 87040; 87070; 87086; 87205; 87207; 88104; 88112; 88305; 88307; 88312; 88313; 88341; 88342; 93005; 93010; 94640; 96361; 96374; 96375; A9503; J0670; J0690; J1650; J1940; J2001; J2270; J2405; J2704; J3010; J7512; J7620; P9016; Q9966; Q9967

== ENCOUNTER 2019-01-27 07:35 | Day surgery (SDC) | payer OTHER ==
--- NOTE | 2019-01-25 07:30 | HP ---
HISTORY OF PRESENT ILLNESS: Luis Ga is a 63-year-old white male patient with diagnosis of lung cancer, status post excisional biopsy of the left axillary node tissue. I have been asked by Dr. Navarro to place a MediPort. Pathology reveals poorly differentiated metastatic carcinoma. Plan is for low-profile MediPort, right subclavian. MEDICATIONS: Pepcid, Symbicort, prednisone, Maalox. ALLERGIES: NONE. SOCIAL HISTORY: Tobacco abuse in the past. Alcohol, socially. PAST MEDICAL HISTORY: See recent History and Physial. PAST SURGICAL HISTORY: See recent History and Physial. PHYSICAL EXAMINATION: VITAL SIGNS: Weight 117 pounds, 5 feet 6 inches, 19 BMI, blood pressure 175/74, heart rate 82, temperature 99 degrees. HEAD, EYES, EARS, NOSE, AND THROAT: Unremarkable. LUNGS: Clear to auscultation. CARDIAC: Regular rate rhythm. No murmur or gallop. ABDOMEN: Soft and nontender. EXTREMITIES: Well-healed left axilla from axillary mass biopsy. ASSESSMENT AND PLAN: Metastatic lung cancer. PLAN: Low-profile MediPort outpatient. He understands risks and benefits, and consents. Job ID: [id number]
[2019-01-26 09:43] VITALS: BMI 18.8
[2019-01-27] MEDS ORDERED: Bupivacaine HCl 0.5%/Epinephrine 1:200,000/PF 30 ml Vial ONE (09:50)
[2019-01-27] MEDS ORDERED: Lidocaine 2% PF 5 ML VIAL ONE (09:50)
[2019-01-27] MEDS ORDERED: Midazolam HCl 2 mg/2 ml Vial ONE (09:51)
[2019-01-27] MEDS ORDERED: Fentanyl 100 MCG/2 ML VIAL ONE (09:51)
[2019-01-27] MEDS ORDERED: Sodium Chloride 0.9% 10 ML ONE (10:49)
--- NOTE | 2019-01-27 11:10 | RAD ---
FRONTAL RADIOGRAPH CHEST: DATE: 01/27/2019. COMPARISON: None. HISTORY: Mediport placement. FINDINGS: This study is performed 01/27/2019 at 10:42 AM. Catheter tubing associated with a right-sided Mediport extends into the region of the right atrium. The Mediport tubing does not appear attached to the reservoir at this time. There is complete opacification of the left hemithorax with abrupt cut off of the left mainstem bronchus suggesting a central obstructing lesion. IMPRESSION: Complete opacification of left hemithorax, likely on the basis of an obstructing left hilar lesion. C atheter tubing for Mediport as above. Transcribed Date/Time: 01/27/2019 11:43 AM
--- NOTE | 2019-01-27 11:43 | RAD ---
RADIOGRAPH CHEST 1 VIEW: DATE: 01/27/2019 TIME: 10:46 AM HISTORY: 63-year-old male status post MediPort placement. COMPARISON: 01/27/2019 10:42 AM FINDINGS: Again noted is the right subclavian central venous catheter with distal tip overlying the lower porti on of the right atrium. Now, that catheter has been trimmed to appropriate length, and is now connected to the access port. No pneumothorax. Right lung is clear. Right lateral costophrenic angle is sharp. No mediastinal shift. Left mainstem bronchus cut off. Total opacification of left lung remains. The appearance of the lungs is unchanged. IMPRESSION: 1. Completion of right subclavian implantable vascular access port placement. 2. Total opacification of left hemithoracic cavity due to combination of large left pleural effusion and underlying total atelectasis of the entire left lung. 3. Left hilar mass occluding the left main stem bronchus.
--- NOTE | 2019-01-27 17:44 | OP ---
DATE OF PROCEDURE: 01/27/2019 PREOPERATIVE DIAGNOSES: Right subclavian vein MediPort, low-profile PowerPort, intravenous sedation and local. Chest x-ray used for placement (fluoroscopy not available), left pleural effusion. ANESTHESIA: TIVA, local 0.5% Marcaine with epinephrine 30 mL mixed with 2% Xylocaine 15 mL used. DESCRIPTION OF PROCEDURE: The patient was taken to the operating room, where under intravenous sedation, chest and neck were prepared with ChloraPrep and draped in routine fashion. Local anesthetic was infiltrated in the skin and subcutaneous tissue about the operative site. Trocar catheter was induced infraclavicularly right into the subclavian vein, placing the J-wire, enlarging the skin site sharply, creating a subcutaneous pocket with blunt and sharp dissection using cautery for hemostasis. Dilator and peel-away sheath placed over the J-wire after removing the trocar catheter. Dilator and peel-away sheath removed. Catheter placed over the peel-away sheath removed. Chest x-ray used to position the tip and the superior vena cava and it was tailored to length, connected to the MediPort, which was placed in the subcutaneous pocket, secured with 2 interrupted sutures of 3-0 Prolene. Subcutaneous tissue was approximated with 3-0 Monocryl, skin with subdermal 4-0 Monocryl, and [place] glue applied. MediPort was accessed with a Schmid needle, aspirated blood, and flushed with heparinized saline solution. X-ray revealed good line placement. The patient tolerated the procedure well. Job ID: [id number]
== END 2019-01-27 11:30 | disposition home or self-care (01) ==
LOC: SDC 07:35
PROVIDERS: ATTEND Specialist
PROC: 05H533Z Insertion of Infusion Device into Right Subclavian Vein, Percutaneous Approach (ICD-10-PCS; principal; 2019-01-27)
DX: C34.90 Malignant neoplasm of unspecified part of unspecified bronchus or lung (principal); Z79.899 Other long term (current) drug therapy; Z87.891 Personal history of nicotine dependence
CPT/HCPCS: 71045; C1788; J0670; J0690; J1642; J2001; J2250; J3010

== ENCOUNTER 2019-02-03 07:55 | Day surgery (SDC) | payer OTHER ==
[2019-02-03] MEDS ORDERED: Acetaminophen 500 MG TAB PO SCH (08:30)
[2019-02-03] MEDS ORDERED: diphenhydrAMINE 25 MG CAP PO SCH (08:30)
[2019-02-03] MEDS ORDERED: Sodium Chloride 0.9% 20 ML ONE (09:35)
[2019-02-03 15:33] VITALS: TEMP 98.7
[2019-02-03 15:39] VITALS: BP 176/81
== END 2019-02-03 15:40 | disposition home or self-care (01) ==
LOC: ONC/OP 07:55
PROVIDERS: ATTEND Nurse Practitioner Acute Care
PROC: 30233N1 Transfusion of Nonautologous Red Blood Cells into Peripheral Vein, Percutaneous Approach (ICD-10-PCS; principal; 2019-02-03)
DX: D64.9 Anemia, unspecified (principal); D69.6 Thrombocytopenia, unspecified
CPT/HCPCS: 36430; 86850; 86900; 86901; J1642; P9016; Q0163

== ENCOUNTER 2019-02-09 09:42 | Outpatient (CLI) | payer OTHER ==
--- NOTE | 2019-02-09 15:11 | MRI ---
BRAIN MRI WITH AND WITHOUT CONTRAST: Date: 02/09/19 HISTORY: Evaluate for intracranial metastasis. Lung cancer involving the left mainstem bronchus. COMPARISON: None. FINDINGS: No hemorrhage on the axial gradient echo sequence. Calvarium has a normal T1 marrow signal intensity. Midline brain parenchymal structures are unremarka ble. With regards to the cerebrum, no mass, mass effect, or midline shift. Age-appropriate brain volume. C ortical choi-white matter differentiation is preserved. No evidence of hydrocephalus. There are no si gnificant T2 or FLAIR white matter hyperintensities. Solitary T2 and FLAIR hyperintensity along the r ight lentiform nucleus and right potter radiata does not have any associated enhancement. Remote lacu rickie infarct is favored. Additional cavitary infarct involving the posterior right lentiform nucleus i s noted. Adequate aeration of the paranasal sinuses and mastoid air cells. Postcontrast images do not demonstrate any abnormal enhancement with regards to the cerebrum. There is T2 and FLAIR hyperintensity along with sulcal effacement involving the cerebellar vermis and right cerebellar hemisphere. Postcontrast images demonstrate a peripherally enhancing lesion in the right cerebellar vermis measuring 1.2 cm mediolateral x 1.1 cm anterior posterior x 1.2 cm craniocaud al. There is an additional enhancing focus noted in the right cerebellum measuring 0.9 cm anterior po sterior x 1.4 cm mediolateral x 0.9 cm craniocaudal. There are two smaller enhancing foci in the post erior medial right cerebellar hemisphere. IMPRESSION: Metastasis involving the posterior fossa as described above. There is associated edema without eviden ce of hydrocephalus. POS: TPC
--- NOTE | 2019-02-09 15:28 | PET ---
PET W CT Skull to Mid Thigh History: Lung cancer. C 34.02 Comparison: Chest radiograph January 27, 2019. CT chest January 12, 2019. Findings: PET/CT from skull to mid thigh was performed after the intravenous administration 11 mCi F- 18 FDG. Large centrally necrotic mass involving the left upper lobe left hilum portions of the lingula. SUV m ax of the mass measures 14.2. There is a large left axillary soft tissue deposit has markedly increased in size now measuring up to 4.6 cm, previously 2 cm, with SUV max 14.7. Left cardiophrenic metastatic lymph node is similar in size with SUV max 8.8. Anterior chest wall sof t tissue deposit just anterior to the xiphoid process has increased in size measuring 14 mm short axis with SUV max 13.7. Anterior pararenal space adenopathy abutting the pancreatic body has become more confluent measuring up to 4.5 cm in size, previously 3 cm, with SUV max 13.1. Subcapsular deposits posterior cortex right kidney has SUV max of 12.8. There is also deposited along the medial margin of the spleen abutting the greater curvature the stomach with SUV max 12.8 with large subcapsular non-FDG avid fluid collection, likely necrosis. Metastatic lymph nodes along the left diaphragmatic pleura have increased in size measuring 2.3 cm sh ort axis, previously less than 1 cm in size, with SUV max 10.6. Metastatic sigmoid mesenteric lymph nodes with central necrosis and possible fistulization with small bowel have SUV max 17.8. Moderate volume free fluid within the pelvis. Metastatic deposit along the right hepatocolic gutter appears the measured 2.2 cm in size, now 3 cm i n size, with SUV max 13.2. Left acetabular osseous metastasis has SUV max 12.4. Soft tissue deposit adjacent to the right gluteus jackie fascia is similar in size with SUV max 3.7. Left femoral intert rochanteric metastatic deposit has SUV max 10.9. Impression: 1. Severe disease progression with size increase metastatic deposits throughout the chest abdomen and pelvis. 2. A mesenteric deposit left lower quadrant of the abdomen has internal gas is concerning to have eit her central necrosis or fistulization with the small bowel, as there is new increased fluid within the pelvis.
== END 2019-02-09 09:43 | disposition home or self-care (01) ==
LOC: PET 09:42
PROVIDERS: ATTEND Internal Medicine Hematology & Oncology
DX: C34.02 Malignant neoplasm of left main bronchus (principal); R60.0 Localized edema
CPT/HCPCS: 70553; 78815; A9552